=== PATIENT | female | born 1985 | race Caucasian/White ===

== ENCOUNTER → 2024-03-24 | Outpatient (CLI) | payer BC ==
[~2024-03-24] MED LIST: NO HOME MEDICATIONS; PHENERGAN 25 TA25 MG PO; PHENERGAN25 MG RC; PRENATAL1 TA2 PO; TYLENOL 325MG325 MG PO
== END ==
LOC: MC.RAD 07:40
DX: Z12.31 Encounter for screening mammogram for malignant neoplasm of breast (principal)